=== PATIENT | female | born 1960 | race Caucasian/White ===

== ENCOUNTER → 2018-10-14 | Outpatient (CLI) | payer OTHER ==
--- NOTE | 2018-10-18 10:16 | MAM ---
EXAM DESCRIPTION: 3D Screening BILATERAL : Digital Mammography. CLINICAL HISTORY: 57 years Female SCREEN . No complaints or personal history of breast cancer. Remote family history of breast cancer. Postmenopausal 6 years. No HRT.. Lifetime risk of developing breast cancer (Tyrer-Cuzick model)(%): 5.1. COMPARISON: Baseline study at this facility. No prior reports available. TECHNIQUE: Bilateral CC and MLO projection full-field images, digital tomosynthesis mammographic technique. Bilateral digital 2-D full-field MLO images. CAD not available for tomosynthesis or 2-D images. FINDINGS: The breast parenchymal density pattern is: Scattered areas of fibroglandular density. No skin thickening or nipple retraction. Right axillary lymph nodes. Focal asymmetry 1130 clock position right breast anterior third approximately 3 cm from the nipple. No definite calcifications. No new focal, stellate mass or density, focal asymmetry , and no suspicious microcalcifications left breast. IMPRESSION: BI-RADS CATEGORY: 0 - INCOMPLETE- Need additional imaging evaluation. FOLLOW-UP: Recall for additional imaging: Targeted right breast ultrasound of the region of interest.. Written communication concerning the IMPRESSION and Follow-up, will be mailed to the patient and referring health care provider. Electronically signed by: Dilshad Kirk MD 10/18/2018 10:15 AM [employer]TERN [employer] PRO[employer]ER
== END ==
LOC: MAMMO 13:30
PROVIDERS: ATTEND Family Medicine
DX: Z12.31 Encounter for screening mammogram for malignant neoplasm of breast (principal)

== ENCOUNTER → 2018-10-23 | Outpatient (CLI) | payer OTHER | LOC: LAB.O 08:11 | PROVIDERS: ATTEND Family Medicine | DX: Z00.00 Encounter for general adult medical examination without abnormal findings (principal); J32.9 Chronic sinusitis, unspecified ==

== ENCOUNTER → 2018-10-25 | Outpatient (CLI) | payer OTHER ==
--- NOTE | 2018-10-25 13:24 | US ---
EXAM DESCRIPTION: Breast,Right: Ultrasound CLINICAL HISTORY: 57 [id number] COMPARISON: Digital screening tomosynthesis bilateral breasts 10/14/2018. TECHNIQUE: Transcutaneous scanning of the right breast utilizing chu-scale and Doppler modes. Scanning performed by the outdoor studies professor observed by Dr. Kirk. FINDINGS: Scanning of the right breast from 10:00 to 12:00. Mostly fatty echotexture with occasional fibroglandular heterogeneous tissues. No dominant solid mass or distinct cyst. No parenchymal edema or large calcifications. No overlying skin changes. Normal vascularity. Also scanning of the right axilla. Mostly fatty echotexture. Multiple well-defined circumscribed hypoechoic solid masses with central echogenicity. Possible central vascularity. The largest lymph node measures 3.0 x 1.2 x 0.8 cm. Second lymph node measures 1.1 x 0.4 x 0.7 cm. A third lymph node measures 1.3 x 0.6 x 0.6 cm. No dominant solid mass or distinct cyst. No parenchymal edema or large calcifications. No overlying skin changes. IMPRESSION: Benign exam. BIRAD CATEGORY: 2 BENIGN FINDINGS. RECOMMENDATIONS: FOLLOW UP: Routine digital bilateral mammographic screening, one year interval from September 2018. The FINDINGS and the FOLLOW-UP plan were reviewed in person with the patient after the examination. Written communication explaining the IMPRESSION and FOLLOW-UP will be mailed to the patient and referring care provider. According to the [employer], yearly mammograms are recommended starting at age 40 and continuing as long as a woman is in good health. Any breast change noted on a breast self-exam should be reported promptly to the patient's healthcare provider. Breast MRI is recommended for women with an approximately 20-25% or greater lifetime risk of breast cancer, including women with a strong family history of breast or ovarian cancer and women who have been treated for Hodgkin's disease. A negative mammographic report should not delay tissue diagnosis in patients with significant clinical history or physical findings. Extremely dense breast tissue limits the sensitivity of digital mammography. Electronically signed by: Dilshad Kirk MD 10/25/2018 1:22 PM [facility]
== END ==
LOC: US 09:00
PROVIDERS: ATTEND Family Medicine
DX: R92.8 Other abnormal and inconclusive findings on diagnostic imaging of breast (principal)

== ENCOUNTER → 2018-12-01 | Outpatient (CLI) | payer OTHER ==
--- NOTE | 2018-12-01 13:37 | CT ---
Procedure: CT LUNG SCREENING Exam Date: 12/01/2018. Ordering Provider: Alan Yao Clinical Indication: PERSONAL HISTORY OF TOBACCO DEPENDENCY . Current smoker. 10 pack years. This patient meets eligibility criteria for low-dose CT lung cancer screening. Comparison: None. Technique: Using a multislice scanner, sequential helical axial imaging was obtained in the thorax, 2.5 mm thickness, 2.5 mm separation, from the level of the thoracic inlet through the lung bases without IV contrast. A low dose protocol was utilized for BMI less than 30: BMI: 30.2. CTDI: 1.76 mGy. 120. kVp. 45 mA. 2D sagittal and coronal reconstructed images, 6.0 mm thickness, were obtained. This exam was performed according to our departmental dose optimization program which includes use of automated exposure control, adjustment of the mA and/or kV according to patient size and/or use of iterative reconstruction technique. Nodule measurements under 10 mm are given as mean value of 3 axes diameters. FINDINGS: Lungs and large airways: Well-inflated bilaterally. No abnormal nodules, masses, or focal infiltrates. Pleura and space: Unremarkable. Mediastinum and nallely: evaluation limited by low dose technique and lack of IV contrast. No gross lymph node enlargement or soft tissue mass. Heart and great vessels: Calcification in the proximal LAD coronary artery and also proximal RCA. Chest wall, lower neck, axillae: Evaluation also limited by same factors as described above. Negative. Upper abdomen: No free fluid or free air in the included peritoneal space. Adrenal glands and spleen normal size and density. Osseous structures: Evaluation limited by low dose MIP technique. Minimal bilateral sternoclavicular arthrosis. No lytic or blastic lesions. IMPRESSION: CT low dose lung screening with no abnormal nodules. [facility] Best Practice recommendations: One-year follow-up. Please see below for Lung RADS category and FOLLOW-UP.* *Lung RADS category Category 1 - No nodule or definitely benign nodules (probability of malignancy less than 1%). Follow-up: Continue annual screening with Low Dose Chest CT in 12 months. Electronically signed by: Dilshad Kirk MD 12/01/2018 1:34 PM CDT
== END ==
LOC: CT 08:00
PROVIDERS: ATTEND Family Medicine
DX: Z87.891 Personal history of nicotine dependence (principal)

== ENCOUNTER → 2019-05-27 | Outpatient (CLI) | payer OTHER | LOC: YCFC.O 07:12 | PROVIDERS: ATTEND Family Medicine | DX: E78.5 Hyperlipidemia, unspecified (principal); Z79.899 Other long term (current) drug therapy ==